=== PATIENT | male | born 1975 ===

== ENCOUNTER 2024-09-05 20:18 | Emergency (ER) | payer BC, SELFPAY ==
[2024-09-05 20:30] VITALS: BP 144/95; PULSE 62; RESP 16; TEMP 37; O2SAT 97; BMI 31.5
--- NOTE | 2024-09-05 20:40 | ED_ITS ---
HPI - Animal Bite General Chief Complaint: Animal Bite Stated Complaint: Dog Bite left hand Time Seen by Provider: 09/05/24 20:33 History of Present Illness HPI narrative: Patient is a 49-year-old gentleman who comes in today after being bit on the left hand by his dog. The dog which is up-to-date on his vaccinations was tangled up and a treadmill. The dog became frightened and inadvertently Susanne the patient in the left patient has full range of motion of his hand. No bone pain. Neurovascular status is intact. Patient's bleeding is minimal. He has a number of puncture wounds on the palmar surface and some on the posterior aspect of the left thumb. Patient is otherwise feeling fine. Patient is up-to-date on his tetanus shot. Wounds are not gaping and her well-approximated puncture wounds. Related Data Home Medications ?Medication ?Instructions ?Recorded ?Confirmed No Known Home Medications 09/05/24 09/05/24 Allergies Allergy/AdvReac Type Severity Reaction Status Date / Time Penicillins Allergy Intermediate Verified 09/05/24 20:34 Review of Systems Status of ROS: Reports: 10 or more systems reviewed and unremarkable except as noted in History and below Exam Narrative: Exam Narrative: EXAM GENERAL: Patient appears comfortable and well. EYES: No scleral icterus. LYMPH: No supraclavicular or cervical lymphadenopathy. SKIN: Minor puncture wounds on the palmar surface of left hand none requiring acute closure. No signs of cellulitis or infection no drainage. Bleeding is minimal. EXT: No dependent lower extremity pedal edema. HEART: Regular rate and rhythm with no murmurs, rubs, or gallops. LUNGS: Clear to auscultation bilaterally with no crackles or wheezes. ABD: Soft, non tender, non distended. PSYCH: Good eye contact, speech is not pressured. Const: Vital Signs, click to edit/add: Vital Signs - 24 hr 09/05/24 20:30 Temperature 98.6 F Pulse Rate [Right Pulse Oximeter] 62 Respiratory Rate 16 Blood Pressure [Ri ght Upper Arm] 144/95 H Pulse Oximetry 97 Oxygen Delivery Me thod Room Air Course Vital Signs Vital signs: Initial Vital Signs Temperature 98.6 F 09/05/24 20:30 Temperature Source Temporal Artery Scan 09/05/24 20:30 Pulse Rate 62 09/05/24 20:30 Pulse Rhythm Regular 09/05/24 20:30 Respiratory Rate 16 09/05/24 20:30 Blood Pressure 144/95 H 09/05/24 20:30 Blood Pressure Mean 111 H 09/05/24 20:30 Blood Pressure Position Sitting 09/05/24 20:30 Pulse Oximetry 97 09/05/24 20:30 Oxygen Delivery Method Room Air 09/05/24 20:30 Vital Signs Temperature 98.6 F 09/05/24 20:30 Pulse Rate 62 09/05/24 20:30 Respiratory Rate 16 09/05/24 20:30 Blood Pressure 144/95 H 09/05/24 20:30 Pulse Oximetry 97 09/05/24 20:30 Oxygen Delivery Method Room Air 09/05/24 20:30 Temperature 98.6 F 09/05/24 20:30 Pulse Rate 62 09/05/24 20:30 Respiratory Rate 16 09/05/24 20:30 Blood Pressure 144/95 H 09/05/24 20:30 Pulse Oximetry 97 09/05/24 20:30 Oxygen Delivery Method Room Air 09/05/24 20:30 MDM - Animal Bite MDM Narrative Medical decision making narrative: Patient is a 49-year-old gentleman bit by a vaccinated dog lives in his home. The bite was understandable based on the dogs sphere. Dogs acting normally. The wounds are minimal and superficial. We did clean the wounds and dress them. I did treated with Augmentin for the next week. I instructed on wound care. I verified his tetanus shot is up-to-date. He follow-up with his primary physician as stated will report any changes symptoms in the interim. Discharge Plan Discharge Clinical Impression: Bite by animal Patient Disposition: Home, Self-Care Condition: Stable Instructions: Animal Bite (ED) Additional Instructions: Augmentin as directed Dressing changes daily. Report any changes in symptoms. Tylenol Motrin Follow-up with your doctor as needed. Activity Level: No Restrictions Discharge Diet: Regular Prescriptions: No Action No Known Home Medications Stand Alone Forms: [facility] Info Instructions
--- OUTSIDE RECORDS SUMMARY | 2024-09-05 21:09 | XMS_ITS | Encounter Summary ---
Author Organization [facility] Address [address] [place] [address] Care Team Providers Care Central Processing Tech Name Role Phone Unassigned, Provider Primary Care Provider Unava ilable Reason for Referral * Therapies (Routine) - New Request Specialty Diagnoses / Procedures Referred By [place] t Referred To Contact Diagnoses Right knee pain, unspecified chronicity Олег Young MD [address] [place] [address] Phone: tel: fax: [facility] [address] [place] [address] Phone: tel: fax: Referral ID Status Reason Start Date Expiration Date V isits Requested Visits Authorized [id number] New Request 06/03/2024 06/03/2025 1 1 Scheduling Instructions This order is your clinician's recommendation for a service and is not an insurance referral which authorizes payment. The recommended service and/or location may not be covered by your insurance plan. Please call the number on your insurance card to find out your specific benefits and coverage for the recommended services and/or location. If you need help scheduling the recommended services, please ask your clinician's staff to assist you. Question Answer Appointment Urgency? 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 PT @ [facility] - 2 X per week Duane Quinn PT ENING NURSE Encounter Details Date Type Department Care Team (Late st Contact Info) Description 06/03/2024 Notes/Orders [facility] [address] [place] [address] Олег Young MD [address] [facility] [place] [id number] Right knee pain, unspecified chronicity (Primary Dx) Social History Tobacco Use Types Packs/Day Years Used Date Smoking Tobacco: Never Smokeless Tobacco: Never Sex and Gender Information Value Date Recorded Sex Assigned at Not on file Legal Sex Male 5:11 AM CDT Gender Identity Not on file Sexual Orientation Not on file documented as of this encounter Plan of Treatment Scheduled Referrals Name Type Priority Associated Diagnoses Orde r Schedule Physical Therapy Referral Routine Right knee pain, unspecified chronicity Ordered: 06/03/2024 documented as of this encounter Visit Diagnoses Diagnosis Right knee pain, unspecified chronicity- Primary documented in this encounter Care Teams Central Processing Tech Relationship Specialty Start Date End Date Unassigned, Provider [address] [place] [address] PCP - General 09/08/01 documented as of this encounter
--- OUTSIDE RECORDS SUMMARY | 2024-09-05 21:10 | XMS_ITS | Clinical Summary ---
Author Organization [facility] Address [address] [place] [id number] Care Team Providers Care Retail Merchandising Specialist Name Role Phone Valentine Ruiz MD Primary Care Provider [phone] Allergies Active Allergy Reactions Criticality Noted Date Comments Penicillins 02/06/2010 Medications No known medications Active Problems Problem Noted Date Diagnosed Date History of colon polyps 03/18/2024 Overview (03/18/2024): 1 7 mm. Repeat 2028 Routine health maintenance 02/06/2010 Overview (02/06/2010): Last cpx-01/17, pthx Last lipid 10/19, LDL-113 Immunizations Immunization Administration Dates Next Due COVID-19 VACCINE SPIKEVAX (M ODERNA 50MCG/0.5ML) 12YO+ PFS 02/04/2024 Hepatitis A (Adult) 07/03/2011 INFLUENZA, IIV3 PF (AGE >= 6 MO) 02/04/2024 Influenza, IIV4 01/24/2018 Tdap 12/05/2018,10/20/2008 Family History Medical History Relation Name Comments Alcohol/Drug Father Alcoholism Father 60's Alcohol/Drug Mother Relation Name Status Comments Father Mother Social History Tobacco Use Types Packs/Day Years Used Date Smoking Tobacco: Never Smokeless Tobacco: Never Tobacco Cessation:Counseling Given: Yes Alcohol Use Standard Drinks/Week Comments Yes 0 (1 standard drink = 0.6 oz pur e alcohol) 1-2 weekly PHQ-2 Answer Date Recorded PHQ-2 TOTAL SCORE 0 02/04/2024 Social Connections Answer Date Recorded Do you often feel lonely or isolated from those around you? 0 02/04/2024 Financial Resource Strain Answer Date R ecorded Difficulty of Paying Living Expenses 3 02/04/2024 Difficulty of Paying Living Expenses Not on file 02/04/2024 Food Insecurity Answer Date Recorded Do you worry your food will run out before you are able to buy more? 1 02/04/2024 Transportation Needs Answer Date Record ed Does lack of transportation keep you from medica l appointments? 1 02/04/2024 Does lack of transportation keep you from work, meetings or getting things that you need? 1 02/04/2024 Housing Stability Answer Date Recorded What is your housing situation today? 1 02/04/2024 Utilities Answer Date Recorded Do you have trouble paying f or utilities (for example, heat, electricity, water, phone)? 1 02/04/2024 Sex and Gender Information Value Date Recorded Sex Assigned at Not on file Legal Sex Male 6:42 AM ADVERTISING SALES AGENT Gender Identity Not on file Sexual Orientation Not on file Obstetrics History Last Filed Vital Signs Vital Sign Reading Time Taken Comments Blood Pressure 110/60 04/21/2024 8:14 AM ADVERTISING SALES AGENT Pulse 60 04/21/2024 8:14 AM ADVERTISING SALES AGENT Temperature 36.9 C (98.4 F) 08/06/2019 11:34 AM CDT Respiratory Rate 20 06/23/2019 10:02 AM ADVERTISING SALES AGENT Oxygen Saturation 96% 08/06/2019 11:34 AM CDT Inhaled Oxygen Concentration - - Weight 88.5 kg (195 lb) 04/21/2024 8:14 AM ADVERTISING SALES AGENT Height 167.6 cm (5' 6) 04/21/2024 8:14 AM ADVERTISING SALES AGENT Body Mass Index 31.47 04/21/2024 8:14 AM ADVERTISING SALES AGENT Plan of Treatment Health Maintenance Due Date Last Done Comments Depression screening for age 12+ 02/03/2025 02/04/2024, 01/30/2023, 10/17/2021, Additional history exists BMI (ht and wt on same day) for age 18+ 04/21/2025 04/21/2024, 02/04/2024, 10/17/2021, Additional history exists Lipids for age 45-75 01/31/2028 01/30/2023, 03/10/2019, 11/07/2017, Additional history exists Tetanus booster 12/05/2028 12/05/2018, 10/20/2008 Colonoscopy through age 75 03/02/2034 03/02/2024 Tdap Completed 12/05/2018, 10/20/2008 COVID-19 vaccine series Completed 02/04/20, 04/24/2021, 08/17/2020, Additional history exists HIV for age 15-65 Completed 02/04/2024, , 11/07/2017, Additional history exists Hepatitis C screening for age 18-79 Completed 02/04/2024, 03/10/2019, 11/07/2017 Influenza Vaccine Completed 02/04/2024, 01/24/2018 Pneumococcal series for age 6-49 Aged Out No longer eligible based on patient's age to complete this topic Procedures Procedure Name Priority Date/Time Associated Diagnosis Comments SCAN-COLONOSCOPY 03/02/2024 7:30 AM CDT HIV 1/2 ANTIGEN/ANTIBODY FOURTH GENERATION W/RFL ([facility]) Routine 02/04/2024 1:35 PM CDT ANTI HCV Routine 02/04/2024 1:35 PM CDT Screen for STD (sexually transmitted disease) LIPID PANEL W REFLEX MEASURED LDL Routine 01/30/2023 2:03 PM CDT Lipid screening from Last 3 Months or Most Recently Relevant to Health Maintenance Results * SCAN-COLONOSCOPY (03/02/2024 7:30 AM CDT) Narrative Procedure Note Raul Melendrez DO - 03/02/2024 6:42 AM CDT [facility] [address] [facility] [facility], [address], [place] [address] Patient Name: Neal Servin Gender: Male Exam Date: 03/02/2024 Visit Number: [id number] Age: 48 Years Date of : 1975 Attending MD: Raul Melendrez DO Medical Record#: [id number] Procedure: Colonoscopy Indications: Colorectal cancer screening Referring MD: Valentine Ruiz MD Primary MD: Valentine Ruiz MD Medications: Intra Procedure Medications: Patient received monitored anesthesia care. Complications: No immediate complications Procedure: An examination of the heart and lungs was performed and found to be withinacceptable limits. . The patient was therefore deemed a reasonablecandidate for endoscopy and sedation. The risks and benefits of the procedure were explained to the patient.After obtaining informed consent, the patient received monitoredanesthesia care and I passed the scope without difficulty via the rectum to the ileum. The appendiceal orificeand ic valve were identified. The scope was retroflexed during theexamination The quality of the prep was good (Miralax/Gatorade/2 tabletsBisacodyl/Magnesium Citrate). This was a complete examination throughout the entire colon. Findings: Polyp location: ascending colon. Quantity: 1. Size: 3 mm. Polyp shape:sessile. Maneuver: polypectomy was performed with a [place] cold biopsyforceps. Removal: complete. Retrieval: complete. Bleeding: none. Polyp location: descending colon. Quantity: 1. Size: 7 mm. Polyp shape:sessile. Maneuver: polypectomy was performed with a cold snare. Removal: complete. Retrieval: complete. Bleeding: none. large external skin tag originating from the anal canal Impression: Colorectal polyp detected on colonoscopy Anal skin tag Preliminary Plan: Comments: Suspect 5-years Recommendation Comments: Patient already has an excision of the skin tagplanned for the latter part of this year with colorectal surgery. Pathology Results: A: COLON, ASCENDING, POLYP: 1. Normal colonic mucosa (clinically, 1 polyp) 2. Negative for serrated change, dysplasia, and malignancy B: COLON, DESCENDING, POLYP: 1. Tubular adenoma 2. Negative for high grade dysplasia 3. Per the colonoscopy report: a. Polyp size: 7 mm b. Resection: Complete c. Retrieval: Complete MICROSCOPIC A: Performed B: Performed Electronically signed by: Griffin House MD Interpreted at [facility], [address] [place] [id number] Orders Instruction(s)/Education: Instruction/Education Timeframe Assessment Colon Polyps K63.5 Final Plan: Repeat colonoscopy in 5 years. We will attempt to contact you at appropriate intervals via U.S. mail. Wemay not be able to find you or contact you at that time, therefore youshould know that the responsibility for following our recommendation restswith you. If you don't hear from us at the time your procedure is due,please contact our office to schedule an appointment. If your contactinformation should change, please contact our office so that we can updateyour record. _Electronically signed by: Raul Melendrez DO 03/02/2024 cc: Valentine Ruiz MD cc: Valentine Ruiz MD us Raul Melendrez DO OTHER Fin al Result * HIV 1/2 ANTIGEN/ANTIBODY FOURTH GENERATION W/RFL ([facility]) (02/04/2024 1:35 PM CDT) HIV AG/AB, 4TH GEN NON-REACT NORA NON-REACT NORA [facility] Comment: HIV-1 antigen and HIV-1/HIV-2 antibodies were not detected. There is no laboratory evidence of HIV infection. PLEASE NOTE: This information has been disclosed to you from records whose confidentiality may be protected by state law. If your state requires such protection, then the state law prohibits you from making any further disclosure of the information without the specific written consent of the person to whom it pertains, or as otherwise permitted by law. A general authorization for the release of medical or other information is NOT sufficient for this purpose. For additional information please refer to http://education.1o1Media.Weotta/faq/TRX411 (This link is being provided for informational/ educational purposes only.) The performance of this assay has not been clinically validated in patients less than 2 years old. 02/04/2024 1:35 PM CDT 02/04/2024 1:39 PM CDT Narrative [facility] - 02/06/2024 5:24 AM CDT FASTING:YES FASTING: YES us Valentine Ruiz MD SEND OUTS Final Res ult [facility] [address] [place] [address], [facility] [address] [place] [address] * ANTI HCV (02/04/2024 1:35 PM CDT) HEPATITIS C ANTIBODY NON-REACTI VE NON-REACT NORA [facility] Comment: HCV antibody was non-reactive. There is no laboratory evidence of HCV infection. In most cases, no further action is required. However, if recent HCV exposure is suspected, a test for HCV RNA (test code 33686) is suggested. For additional information please refer to http://education.MedCity News/faq/WUH27d3 (This link is being provided for informational/ educational purposes only.) Blood BLOOD SPECIMEN / Unknown 02/04/2024 1:35 PM CDT 02/04/2024 1:39 PM CDT Narrative [facility] - 02/06/2024 5:24 AM CDT FASTING:YES FASTING: YES Valentine Ruiz MD SEND OUTS Final Res ult [employer] [facility] [address] [place] [id number], [facility] [address] [place] [address] * (ABNORMAL) LIPID PANEL W REFLEX MEASURED LDL (01/30/2023 2:03 PM CDT) CHOLESTEROL,TOTAL 234(H) 100 - 199 mg/dL 01/30/2023 9:25 PM CDT [facility] Comment: Cholesterol, Total Reference Ranges Desirable <200 mg/dL Borderline 200-239 mg/dL High >=240 mg/dL TRIGLYCERIDES 301(H) <150 mg/dL 01/30/2023 9:25 PM CDT [facility] HDL CHOLESTEROL 42 >40 mg/dL 9:25 PM CDT [facility] NON-HDL CHOLESTEROL 192(H) <145 mg/dl 01/30/2023 9:25 PM CDT [facility] CHOL/HDL RATIO 5.57(H) <4.50 01/30/2023 9:25 PM CDT [facility] LDL CHOLESTEROL 132(H) <=130 mg/dL 01/30/2023 9:25 PM CDT [facility] VLDL CHOLESTEROL 60(H) <=30 mg/dL 01/30/2023 9:25 PM CDT [facility] PROVIDER ORDERED STATUS RANDOM 01/30/2023 9:25 PM CDT [facility] Blood BLOOD SPECIMEN / Unknown Venipuncture / Unknown 01/30/2023 2:03 PM CDT 01/30/2023 2:03 PM CDT us Valentine Ruiz MD CHEMISTRY Final Res ult [facility] [address] [place] [address], [place] from Last 3 Months or Most Recently Relevant to Health Maintenance Insurance [facility] Care Teams Retail Merchandising Specialist Relationship Specialty Start Date End Date Valentine Ruiz MD PCP - General Family Practice 11/07/17
--- OUTSIDE RECORDS SUMMARY | 2024-09-05 21:10 | XMS_ITS | Data Portability ---
Author Organization [place] [facility] Address [address] [place] [address] Care Team Providers Care Access Liaison Name Role Phone [facility] Primary Care Provider [phone] Assessment Encounter Date Assessment Date Assessment LastModified by Organization Details LastModified Time 02/26/2023 02/26/2023 47 Y/O MALE, HAD BLOOD FROM [place] ON SEVERAL OCCASIONS. NO VOIDING SX.S. U/A NEG TODAY. NEG C.T. SCAN.CYSTO - NO STRICTURES. NEG BLADDER. REVIEWED C.T. SCAN ORDERED, REVIEWED U/A, CYSTO PLAN RTC PRN. VOID SOONER. DONT DELAY. Not available 02/26/2023 11:33:10 Plan of Treatment Reminders Order Date Submit Date Provider Last Modified By Organization Details Last Modified Time Details Appointments None recorded. Lab urinalysis , dipstick 2022 023 [facility], [address], [place], [address], 10:51:06 Referral None recorded. Procedures None recorded. Surgeries None recorded. Imaging None recorded. Medication Orders None recorded. Patient TargetsNo targets recorded. Patient InstructionsNo instructions recorded. Reason for Referral None Reported. Results Created Date Observation Date Name Description Value Unit Range Abnormal Flag Note LastModifiedBy Organization Detail LastModifiedTime 02/27/20 23 02/26/2023 urina lysis , dipst ick Color-Status Yellow Not Available [facility] [address], [place], [address], 02/26/2023 10:50:39 02/27/20 23 02/26/2023 urina lysis , dipst ick Clarity-Stat us Clear Not Available [facility] [address], [place], [address], 02/26/2023 10:50:39 02/27/20 23 02/26/2023 urina lysis , dipst ick pH-Status 5.5 Not Available [facility] [address], [place], [address], 02/26/2023 10:50:39 02/23/2002/06/2023 CT, urogr am No observ ation record ed. [email or web address] Not Available 2022 16:11:31 Result Notes None recorded. Problems Name Problem SNOMED Code Status Onset Date Resolution Date Notes Provider Name and Address Organization Details Recorded Time Subhash hematuria 505150550 Active 023 Raad Rodriguez MD [address] [place] [address],[address] [place] [address], [phone], [facility] 3 10:50:35 Problem Notes None recorded. Procedures Surgical History Date Name Laterality Status Provider Name and Address Organization Details Recorded Time CystoscopyMale completed Raad Rodriguez MD [address] [place] [address],[address], [place], [address], [facility] 02/26/2023 11:33:42 Imaging Results Imaging Date Name Status LastModified by Organiz ation Details LastModified Time 02/06/2023 CT, urogram completed [email or web address] Information n ot available 02/22/2023 16:11:31 Procedure Notes None recorded. Medical Equipment None Reported. Allergies Allergen ID Allergen Name Allergen Category Reaction Reaction Severity Criticality Documentation Date Start Date Code Code System Note Provider Name and Address Organization Details Recorded Time 068613 Product containin g penicilli n (product) medicatio n Not available Not available Not available 02/26/2023 41722 8001 SNOMED Not Available Not Available Not Available Medications Name Sig Start Date Stop Date Status Note LastModified by Organization Details LastModified Time hydrocodone 5 mg-acetamino phen 325 mg tablet TAKE 1 TO 2 TABLETS BY MOUTH EVERY 4 HOURS NEEDED . DO NOT EXCEED 10 PER 24 HOURS 02/26 completed Not Available Not Available Not Available hydroxyzine HCl 25 mg tablet TAKE 1 TO 2 TABLETS BY MOUTH EVERY 4 HOURS NEEDED FOR PAIN 02/26 completed Not Available Not Available Not Available Vitals Date Recorded Body height Body mass index (BMI) Body weight Provider Name and Address Organization Details Last Updated DateTime 02/26/2023 167.64 cm 31.5 kg/m2 23607.51 g Raad Rodriguez MD [address] [place] [address],[address] [facility] 02/26/2023 10:49:43 Social History Question Answer Notes LastModified by Organizat ion Details LastModified Time Tobacco Smoking Status Never Smoker Raad Rodriguez MD [address] [place] [address] [phone] [place] [address] Urology 02/26/2023 10:50:16 What Is Your Level Of Alcohol Consumption? Occasional Information not available 02/26/2023 What Was The Date Of Your Most Recent Tobacco Screening? 02/26/2023 Information not available 02/26/2023 Sex: Unknown Functional Status None recorded. Mental Status None recorded. Family History Nothing Reported. Medical History Condition Response Diabetes N Sexually Transmitted Infection N Other N Bleeding Disorder N High Blood Pressure N Kidney Stones N Cancer N Lung Disease N Depression N High Cholesterol N GERD/Acid Reflux N Heart Disease N Immunizations Vaccine Type Date Status Note Provider Nam e and Address Organization Details Recorded Time COVID-19, mRNA, LNP-S, PF, 100 mcg/0.5mL dose or 50 mcg/0.25mL dose 07/20/2020 completed Raad Rodriguez MD [address] [place] [address], [phone] [place] [address] Urology 02/26/2023 10:49:55 COVID-19, mRNA, LNP-S, PF, 100 mcg/0.5mL dose or 50 mcg/0.25mL dose 08/17/2020 completed Raad Rodriguez MD [address] [place] [address],[address] [address], [facility] 02/26/2023 10:49:55 COVID-19, mRNA, LNP-S, PF, 100 mcg/0.5mL dose or 50 mcg/0.25mL dose 04/24/2021 completed Raad Rodriguez MD [address] [place] [address],[address], [place], [address] [place] [address], [facility] 02/26/2023 10:49:55 Tdap 10/20/2008 completed Raad Rodriguez MD [address] [place] [address],[address], [address] [place] [address], [facility] 02/26/2023 10:49:55 Tdap 12/05/2018 completed Raad Rodriguez MD [address] [place] [address],[address], [address] [place] [address], [facility] 02/26/2023 10:49:55 Hep A, adult 07/03/2011 completed Raad emery MD [address] [place] [address],[address], [address] [place] [address], [facility] 02/26/2023 10:49:55 Influenza, split virus, quadrivalent, PF 01/24/2018 completed Raad Rodriguez MD [address] [place] [address],[address], [address] [place] [address], [facility] 02/26/2023 10:49:56 Influenza, split virus, quadrivalent, PF 03/26/2020 completed Raad Rodriguez MD [address] [place] [address],[address], [address] [place] [address], [facility] 02/26/2023 10:49:56 Past Encounters Encounter ID Performer Location Encounter Start Date Encounter Closed Date Diagnosis/Indication Diagnosis SNOMED-CT Code Diagnosis ICD10 Code Diagnosis Note [id number] MD KISHAN Benton_Debbie [address] [phone] 02/26/2023 10:40:23 03/08/2023 10:50:45 Subhash hematuria [id number] R31.0 Health Concerns Section Related Observation LastModified by Organization Detai ls LastModified Time None Recorded Concern Status LastModified by Organization Details LastModified Time None Recorded Advance Directives Directive None Recorded Payers Encounter Date Sequence Insurance Name Policy Number Policy Simmons Covered Member ID Simmons Member ID Guarantor Name 02/26/2023 1 [facility] Neal Servin [id number] Neal Gerry Malathi Notes Date Note Type Note Provider Name and Address Organization Details Recorded Time 02/26/2023 text/html 47 YOM HERE FOR terminal HEMATURIA. HAS HAPPENED TWICE. CT SCAN NEGATIVE. he describes it mas terminal hematuria. URINE NEVER TURNED RED. Raad Rodriguez MD [address] [place] [address],[address], [place], [address], [facility] 02/26/2023 11:34:01
--- OUTSIDE RECORDS SUMMARY | 2024-09-05 21:10 | XMS_ITS | Clinical Summary ---
Author Organization [facility] Address [address] [place] [address]. [place] [address] Care Team Providers Care Special Assemblies Supervisor Name Role Phone Valentine Ruiz MD Primary Care Provider Unavaila ble Allergies Active Allergy Reactions Criticality Noted Date Comments Penicillins 02/06/2010 Medications albuterol (PROAIR HFA/PROVENTIL HFA/VENTOLIN HFA) 108 (90 Base) MCG/ACT Inhaler Inhale 1-2 puffs into the lungs 8 Active fluticasone (FLONASE) 50 MCG/ACT spray [place] 2 sprays in nostril 8 Active diazepam (VALIUM) 10 MG tabletIndications: Encounter for sterilization Take 1 tablet (10 mg) by mouth every 6 hours as needed for anxiety or sleep Take 30-60 minutes before procedure. Do not operate a vehicle after taking this medication. 1 tablet 8 Active Social History Tobacco Use Types Packs/Day Years Used Date Smoking Tobacco: Never Smokeless Tobacco: Never Sex and Gender Information Value Date Recorded Sex Assigned at Not on file Legal Sex Male 3:45 AM SOLID [employer]IE [employer] Gender Identity Not on file Sexual Orientation Not on file Last Filed Vital Signs Vital Sign Reading Time Taken Comments Blood Pressure 114/68 12/12/2017 4:01 PM CDT Pulse 59 12/12/2017 4:01 PM CDT Temperature - - Respiratory Rate - - Oxygen Saturation 95% 12/12/2017 4:01 PM CDT Inhaled Oxygen Concentration - - Weight 86.2 kg (190 lb) 12/12/2017 4:01 PM CDT Height 168.9 cm (5' 6.5) 12/12/2017 4:01 PM CDT Body Mass Index 30.21 12/12/2017 4:01 PM CDT Plan of Treatment Not on file Insurance [facility] Care Teams Special Assemblies Supervisor Relationship Specialty Start Date End Date Valentine Ruiz MD PCP - General 12/12/17
--- OUTSIDE RECORDS SUMMARY | 2024-09-05 21:10 | XMS_ITS | Clinical Summary ---
Author [facility] Address [address], [place] [address] Care Team Providers Care Program Director Substance Abuse Name Role Phone Unassigned, Provider Primary Care Provider Unava ilable Source Comments You are receiving this document as you are listed as the primary care provider,follow-up provider, or the patient has been referred to you for consultation.This is in compliance with the Medicare andSelect [facility] Hospital[facility] EHR Incentive Program,which states Providers who transition their patient to another setting of careor provider of care or refers their patient to another provider of care shouldprovide summary care record for each transition of care or referral. Dating [employer] Allergies Active Allergy Reactions Criticality Noted Date Comments Penicillin G 08/15/2000 Medications ibuprofen (MOTRIN) 200 MG tablet Take 200-400 mg by mouth every 4 hours as needed for Pain. 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 Family History Medical History Relation Name Comments Cataract Negative Family History Glaucoma Negative Family History Macular Degeneration Negative Family History Social History Tobacco Use Types Packs/Day Years Used Date Smoking Tobacco: Never Smokeless Tobacco: Never Sex and Gender Information Value Date Recorded Sex Assigned at Not on file Legal Sex Male 5:11 AM CDT Gender Identity Not on file Sexual Orientation Not on file Last Filed Vital Signs Vital Sign Reading Time Taken Comments Blood Pressure 155/72 03/01/2023 9:31 AM CDT Pulse 52 03/01/2023 9:31 AM CDT Temperature 36.8 C (98.2 F) 03/01/2023 9:31 AM CDT Respiratory Rate 20 03/01/2023 9:31 AM CDT Oxygen Saturation 95% 03/01/2023 9:31 AM CDT Inhaled Oxygen Concentration - - Weight 86.2 kg (190 lb) 02/28/2022 8:42 AM CDT Height 167.6 cm (5' 6) 02/28/2022 8:42 AM CDT Body Mass Index 30.67 02/28/2022 8:42 AM CDT Plan of Treatment Health Maintenance Due Date Last Done Comments Colon Cancer Screening Plan Due 1975 Hep C Screening (Preventive Services) 1975 HIV Screening (Preventive Services) 1991 Adult Preventive Visit 1993 HepB Vaccine (1) 1994 Cholesterol 2010 Zoster/Shingles Vaccine (1 of 2) 2025 DTaP/Tdap/Td Vaccine (3 - Tdap) 12/05/2028 12/05/2018, 10/20/2008 HepA Vaccine Aged Out 07/03/2011 No longer eligi ble based on patient's age to complete this topic COVID-19 Vaccine Completed 02/04/2024, , 08/17/2020, Additional history exists Influenza Vaccine Completed 02/04/2024, , 01/24/2018 Hib Vaccine Aged Out No longer eligi ble based on patient's age to complete this topic IPV (Polio) Vaccine Aged Out No longe r eligible based on patient's age to complete this topic MCV4 Vaccine Aged Out No longer eligi ble based on patient's age to complete this topic Meningococcal B Vaccine Aged Out No l onger eligible based on patient's age to complete this topic Pneumococcal Vaccine Aged Out No long er eligible based on patient's age to complete this topic Medical Devices Implanted Type Area Power Grader Operator Device Identifier Shelf Expiration Date Model / Serial / Lot Tra Bone Biomet R 1x40 - [id number] Implanted:Qty: 1 on 12/18/2018 by Олег Young MD at [facility] Right: [employer] 10/10/2022 [id number] / 0 / [id number] Tightrope Abs Button 8x12 - [id number] Implanted:Qty: 1 on 12/18/2018 by Олег Young MD at [facility] Right: [employer] 11/10/2023 [id number] / 0 / [id number] Tightrope Acl Ti Rt - [id number] Implanted:Qty: 1 on 12/18/2018 by Олег Young MD at [facility] Right: [employer] 08/11/2023 [id number] / 0 / [id number] Tendon Semitendinosus - [id number] Implanted:Qty: 1 on 12/18/2018 by Олег Young MD at [facility] Right: [employer] 09/30/2022 [id number] / [id number] / 0 Labelle Swivel Lk C 4.75x22 - [id number] Implanted:Qty: 1 on 12/18/2018 by Олег Young MD at [facility] Right: [employer] 09/09/2020 [id number] / 0 / [id number] Comp Fem Uka Tra Rm/Ll Sz5 - [id number] Implanted:Qty: 1 on 12/18/2018 by Олег Young MD at [facility] Right: [employer] 04/11/2023 AR-501-[id number] / 0 / [id number] Tray Tib Uka Tra Rm/Ll Sz4 - [id number] Implanted:Qty: 1 on 12/18/2018 by Олег Young MD at [facility] Right: [employer] 05/12/2023 AR-501-[id number] / 0 / [id number] Fzk-450-Dkl2 - [id number] Implanted:Qty: 1 on 12/18/2018 by Олег Young MD at [facility] Right: [employer] 01/10/2021 [id number] / 00 / [id number] Description:iBalance UKS Tib ial Bearing Implant, VIT E Insurance [facility] Advance Directives * Full Code (Latest Code Status on File) Date Activated Date Inactivated Comments 11/02/2021 9:01 AM 11/02/2021 1:25 PM * Full Code Date Activated Date Inactivated Comments 12/18/2018 5:58 PM 12/18/2018 10:25 PM Full code in effect for 30 days Care Teams Program Director Substance Abuse Relationship Specialty Start Date End Date Unassigned, Provider [address] [place] [id number] PCP - General 09/08/01
== END 2024-09-05 21:12 | disposition home or self-care (01) ==
LOC: ED 21:07
PROVIDERS: Emergency Provider Internal Medicine
DX: S61.452A Open bite of left hand, initial encounter (principal); W54.0XXA Bitten by dog, initial encounter
CPT/HCPCS: 99283